=== PATIENT | female | born 1985 | race Caucasian/White ===

== ENCOUNTER → 2018-07-13 | Emergency (ER) | payer MEDICAID ==
[~2018-07-13] VITALS: Ht 165.1 cm; Wt 119.5 kg
[~2018-07-13] MED LIST: ACET-812 PO; GUAI1TBM19 PO; HCTZ; IBUP-1984 PO; ONDA4TAB6 PO; [UNRECOGNIZED DRUG - REMARK]
[2018-07-13 18:26] VITALS: BP 174/117
[2018-07-13 19:08] LABS: BASOPHILS % (AUTO) 0.3 % (0-1); EOSINOPHILS # (AUTO) 0.2 X10'3 (0-0.9); EOSINOPHILS % (AUTO) 1.5 % (0-6); HEMATOCRIT 42.3 % (35.0-45.0); HEMOGLOBIN 13.9 g/dl (12.0-16.0); LYMPHOCYTES # (AUTO) 3.4 X10'3 (1.1-4.8); LYMPHOCYTES % (AUTO) 26.9 % (21-51); MEAN CORPUSCULAR HEMOGLOBIN 28.8 PG (27.0-31.0); MEAN CORPUSCULAR HGB CONC 32.9 % (33.0-36.5); MEAN CORPUSCULAR VOLUME 87.7 FL (78-98); MEAN PLATELET VOLUME 8.6 FL (7.4-10.4); MONOCYTES % (AUTO) 7.5 % (2-12); NEUTROPHILS # (AUTO) 8.1 X10'3 (1.8-7.7); NEUTROPHILS % (AUTO) 63.8 % (42-75); PLATELET COUNT 359 X10'3 (140-440); RED BLOOD COUNT 4.82 X10'6 (4.20-5.60); RED CELL DISTRIBUTION WIDTH 13.4 % (11.5-14.5); WHITE BLOOD COUNT 12.7 X10'3 (4.5-11.0)
[2018-07-13 19:28] LABS: ALANINE AMINOTRANSFERASE 34 U/L (12-78); ALBUMIN 3.9 G/DL (3.4-5.0); ALKALINE PHOSPHATASE 92 IU/L (46-116); ANION GAP 10 (8-16); ASPARTATE AMINO TRANSFERASE 16 U/L (10-37); BILIRUBIN,TOTAL 0.4 MG/DL (0.1-1.0); BLOOD UREA NITROGEN 8 MG/DL (7-18); BUN/CREATININE RATIO 11.3 (6.6-38.0); CALCIUM 9.1 MG/DL (8.5-10.1); CHLORIDE 102 MMOL/L (99-107); CREATININE 0.71 MG/DL (0.40-0.90); GLUCOSE 78 MG/DL (70-104); POTASSIUM 3.7 MMOL/L (3.5-5.1); PROTHROMBIN TIME 9.8 SECONDS (9.0-12.0); SODIUM 138 MMOL/L (135-145); TOTAL CARBON DIOXIDE 26.4 MMOL/L (24-32); eGFR > 90 ML/MIN
[2018-07-13 19:38] LABS: UA COLLECTION TYPE CLN CATCH MIDSTREAM; URINE HCG NEGATIVE (NEG)
[2018-07-13 19:39] LABS: CLARITY,URINE CLOUDY (Clear); COLOR,URINE Red (Yellow)
[2018-07-13 20:08] LABS: RBC,URINE TNTC /HPF (0-2); SQUAMOUS EPITHELIAL CELL,UR MODERATE /LPF (FEW)
[2018-07-13 20:09] LABS: BACTERIA,URINE FEW /HPF (Neg); WBC,URINE 0-4 /HPF (0-4)
== END | disposition home or self-care (01) ==
LOC: ER 18:04
DX: N93.9 Abnormal uterine and vaginal bleeding, unspecified (principal); I10 Essential (primary) hypertension; Z87.440 Personal history of urinary (tract) infections; Z91.040 Latex allergy status
CPT/HCPCS: 36415; 80053; 81001; 81025; 85025; 85610; 99283

== ENCOUNTER 2018-08-25 18:23 | Emergency (ER) | payer MEDICAID ==
[~2018-08-25] VITALS: Ht 165.1 cm; Wt 126.0 kg
[2018-08-25 18:33] VITALS: BP 157/94
[2018-08-25] MEDS ORDERED: HYDROcodone/acetaminophen 10/325mg tab PO STA (18:36)
[2018-08-25] MEDS ORDERED: IBUP-1985 PO (20:37)
== END 2018-08-25 20:55 | disposition home or self-care (01) ==
LOC: ER 18:24
DX: M25.561 Pain in right knee (principal); I10 Essential (primary) hypertension; Z88.8 Allergy status to other drugs, medicaments and biological substances; Z91.040 Latex allergy status; W01.0XXA Fall on same level from slipping, tripping and stumbling without subsequent striking against object, initial encounter; Y93.89 Activity, other specified; Y92.89 Other specified places as the place of occurrence of the external cause; Y99.8 Other external cause status
CPT/HCPCS: 29505; 73564; 99283

== ENCOUNTER 2019-07-30 18:34 | Emergency (ER) | payer MEDICAID ==
[~2019-07-30] VITALS: Ht 165.1 cm; Wt 122.7 kg
[~2019-07-30 18:34] MED LIST changes: +IBUP-1985 PO
[2019-07-30 18:40] VITALS: BP 163/97
[2019-07-30] MEDS ORDERED: HYDROcodone/acetaminophen 10/325mg tab PO ONE (19:10)
--- NOTE | 2019-07-30 19:49 | NUR ---
ULTRASOUND AT BEDSIDE
[2019-07-30 20:11] LABS: BASOPHILS # (AUTO) 0.1 X10'3 (0-0.2); BASOPHILS % (AUTO) 0.8 % (0-1); EOSINOPHILS # (AUTO) 0.4 X10'3 (0-0.9); EOSINOPHILS % (AUTO) 4.1 % (0-6); HEMATOCRIT 38.8 % (35.0-45.0); HEMOGLOBIN 13.3 g/dl (12.0-16.0); LYMPHOCYTES # (AUTO) 2.9 X10'3 (1.1-4.8); LYMPHOCYTES % (AUTO) 29.1 % (21-51); MEAN CORPUSCULAR HEMOGLOBIN 29.2 PG (27.0-31.0); MEAN CORPUSCULAR HGB CONC 34.2 g/dL (33.0-36.5); MEAN CORPUSCULAR VOLUME 85.5 FL (78-98); MONOCYTES # (AUTO) 0.7 X10'3 (0-0.9); MONOCYTES % (AUTO) 7.3 % (2-12); NEUTROPHILS # (AUTO) 5.7 X10'3 (1.8-7.7); NEUTROPHILS % (AUTO) 58.7 % (42-75); PLATELET COUNT 300 X10'3 (140-440); RED BLOOD COUNT 4.54 X10'6 (4.20-5.60); RED CELL DISTRIBUTION WIDTH 13.8 % (11.5-14.5); WHITE BLOOD COUNT 9.8 X10'3 (4.5-11.0)
[2019-07-30 20:29] LABS: ALANINE AMINOTRANSFERASE 38 U/L (12-78); ALBUMIN 3.3 G/DL (3.4-5.0); ALBUMIN/GLOBULIN RATIO 0.8 (1.1-1.5); ALKALINE PHOSPHATASE 67 IU/L (46-116); ANION GAP 7 (8-16); ASPARTATE AMINO TRANSFERASE 13 U/L (10-37); BILIRUBIN,TOTAL 0.3 MG/DL (0.1-1.0); BLOOD UREA NITROGEN 15 MG/DL (7-18); BUN/CREATININE RATIO 17.6 (6.6-38.0); CALCIUM 8.4 MG/DL (8.5-10.1); CHLORIDE 106 MMOL/L (99-107); CREATININE 0.85 MG/DL (0.40-0.90); GLUCOSE 99 MG/DL (70-104); POTASSIUM 3.8 MMOL/L (3.5-5.1); SODIUM 140 MMOL/L (135-145); TOTAL PROTEIN 7.3 G/DL (6.4-8.2); eGFR 77 ML/MIN
[2019-07-30 20:54] LABS: CLARITY,URINE CLOUDY (Clear); UA COLLECTION TYPE CLN CATCH MIDSTREAM
[2019-07-30 20:55] LABS: COLOR,URINE RED (Yellow)
[2019-07-30 20:56] LABS: URINE HCG NEGATIVE (NEG)
[2019-07-30 21:08] LABS: AMORPHOUS URATES 1+; BACTERIA,URINE NONE SEEN /HPF (Neg); RBC,URINE TNTC /HPF (0-2); SQUAMOUS EPITHELIAL CELL,UR FEW /LPF (FEW)
[2019-07-30] MEDS ORDERED: ketorolac tromethamine 15mg/ml inj. IM ONE (21:25)
== END 2019-07-30 21:40 | disposition home or self-care (01) ==
LOC: ER 18:35
DX: R10.13 Epigastric pain (principal); R10.11 Right upper quadrant pain; M54.6 Pain in thoracic spine; G89.29 Other chronic pain; F32.9 Major depressive disorder, single episode, unspecified; Z88.8 Allergy status to other drugs, medicaments and biological substances; Z91.040 Latex allergy status; Z79.899 Other long term (current) drug therapy
CPT/HCPCS: 36415; 76700; 80053; 81001; 81025; 85025; 87088; 96372; 99284; J1885

== ENCOUNTER 2020-06-22 20:28 | Emergency (ER) | payer MEDICAID ==
[~2020-06-22] VITALS: Ht 165.1 cm; Wt 124.2 kg
[~2020-06-22 20:28] MED LIST changes: -GUAI1TBM19 PO; -HCTZ; -IBUP-1985 PO; +LIDOcaine 1% 30ml preserv. free vial ONE; -ONDA4TAB6 PO; -[UNRECOGNIZED DRUG - REMARK]
[2020-06-22 20:31] VITALS: BP 150/98
== END 2020-06-22 22:35 | disposition home or self-care (01) ==
LOC: ER 20:29
DX: L02.412 Cutaneous abscess of left axilla (principal); R50.9 Fever, unspecified; F32.9 Major depressive disorder, single episode, unspecified; Z87.440 Personal history of urinary (tract) infections; Z91.040 Latex allergy status; Z88.8 Allergy status to other drugs, medicaments and biological substances; Z79.899 Other long term (current) drug therapy
CPT/HCPCS: 10060; 99282; J2001

== ENCOUNTER 2021-03-26 12:07 | Day surgery (SDC) | payer MEDICAID ==
[2021-03-19 15:32] LABS: BASOPHILS # (AUTO) 0.1 X10'3 (0-0.2); BASOPHILS % (AUTO) 0.6 % (0-1); EOSINOPHILS # (AUTO) 0.1 X10'3 (0-0.9); EOSINOPHILS % (AUTO) 1.1 % (0-6); LYMPHOCYTES # (AUTO) 2.6 X10'3 (1.1-4.8); LYMPHOCYTES % (AUTO) 25.4 % (21-51); MEAN CORPUSCULAR HEMOGLOBIN 28.2 PG (27.0-31.0); MEAN CORPUSCULAR HGB CONC 33.3 g/dL (33.0-36.5); MEAN CORPUSCULAR VOLUME 84.7 FL (78-98); MONOCYTES # (AUTO) 0.7 X10'3 (0-0.9); MONOCYTES % (AUTO) 7.4 % (2-12); NEUTROPHILS # (AUTO) 6.6 X10'3 (1.8-7.7); NEUTROPHILS % (AUTO) 65.5 % (42-75); PRE OP HEMATOCRIT 38.3 % (35.0-45.0); PRE OP HEMOGLOBIN 12.7 g/dL (12.0-16.0); PRE OP PLATELET COUNT 310 X10'3 (140-440); RED BLOOD COUNT 4.52 X10'6 (4.20-5.60); RED CELL DISTRIBUTION WIDTH 14.7 % (11.5-14.5)
[2021-03-19 15:37] LABS: CLARITY,URINE CLOUDY (Clear); COLOR,URINE YELLOW (Yellow); GLUCOSE, URINE NEGATIVE (Neg); KETONES,URINE NEGATIVE (Neg); LEUKOCYTE ESTERASE ,URINE NEGATIVE (Neg); NITRITES, URINE NEGATIVE (Neg); OCCULT BLOOD,URINE NEGATIVE (Neg); PROTEIN,URINE NEGATIVE (Neg)
[2021-03-19 15:40] LABS: UA COLLECTION TYPE CLN CATCH MIDSTREAM
[2021-03-19 15:42] LABS: HCG SERUM QL NEGATIVE
[2021-03-19 15:52] LABS: MUCUS STRANDS MANY /LPF (Neg); SQUAMOUS EPITHELIAL CELL,UR MANY /LPF (FEW)
[2021-03-19 15:52] LABS: ALBUMIN 3.7 G/DL (3.4-5.0); ALBUMIN/GLOBULIN RATIO 0.9 (1.1-1.5); ALKALINE PHOSPHATASE 82 IU/L (46-116); BLOOD UREA NITROGEN 12 MG/DL (7-18); BUN/CREATININE RATIO 16.9 (6.6-38.0); CALCIUM 8.1 MG/DL (8.5-10.1); CHLORIDE 104 MMOL/L (99-107); CREATININE 0.71 MG/DL (0.40-0.90); PRE OP ALT 45 U/L (30-65); PRE OP ANION GAP 10 (8-16); PRE OP AST 15 U/L (10-37); PRE OP BILIRUB, TOTAL 0.6 MG/DL (0.0-1.0); PRE OP GLUCOSE 98 MG/DL (70-104); PRE OP POTASSIUM 3.7 MMOL/L (3.4-5.1); PRE OP SODIUM 141 MMOL/L (135-145); eGFR > 90 ML/MIN
[2021-03-19 15:54] LABS: BACTERIA,URINE 4+ /HPF (Neg); RBC,URINE 0-2 /HPF (0-2); WBC,URINE 0-4 /HPF (0-4)
[~2021-03-26] VITALS: Ht 165.1 cm; Wt 124.1 kg
[2021-03-26] VITALS (18 sets, daily range): BP systolic 124–181; BP diastolic 76–100
[~2021-03-26 12:07] MED LIST changes: -ACET-812 PO; +ACYC-1 PO; +DOCUMENT DATE & TIME OF BETA-BLOCKER PO ONE; -IBUP-1984 PO; +LABE100T5 PO; -LIDOcaine 1% 30ml preserv. free vial ONE; +LORA-512 PO; +NIFE30TA95 PO; +NORE0.3560 PO; +SOLI5TAB2 PO; +TRIA15CR62 TOP; +ceFOXitin 2GM-NS 100mL ADDvant 100 ML IV ONE; +famotidine 20mg tablet PO ONE; +ringers solution, lacted 1,000 ML IV SCH
[2021-03-26] MEDS ORDERED: BUPIVAcaine 0.5% inj/PF 30 ML ONE (13:36)
[2021-03-26] MEDS ORDERED: fentaNYL/PF 50MCG/1 ML 2ML syringe ONE (14:11)
[2021-03-26] MEDS ORDERED: midazolam 1 mg/ML 2ml injection ONE (14:11)
[2021-03-26] MEDS ORDERED: hydrALAZINE 20mg/ml inj. IV ONE (14:30)
[2021-03-26] MEDS ORDERED: glycopyrrolate 0.2mg/ml inj ONE (14:30)
[2021-03-26] MEDS ORDERED: sevoflurane 250ml liquid IH ONE (14:30)
[2021-03-26] MEDS ORDERED: neostigmine methylsulfate 1 MG/ML 10ml vial ONE (14:30)
[2021-03-26] MEDS ORDERED: dexamethasone sod phosphate 4mg/ml inj. ONE (15:21)
[2021-03-26] MEDS ORDERED: LIDOcaine 2% (20mg/ml) 5ml vial ONE (15:21)
[2021-03-26] MEDS ORDERED: rocuronium 10mg/ml inj IV ONE (15:21)
[2021-03-26] MEDS ORDERED: acetaminophen 1,000mg/100ml IV 100 ML IV ONE (15:21)
[2021-03-26] MEDS ORDERED: propofol inj 20 ML IV ONE (15:21)
[2021-03-26] MEDS ORDERED: ondansetron/PF 4mg/2ml inj ONE (15:21)
[2021-03-26] MEDS ORDERED: sugammadex 200mg/2ml injection IV ONE ×2 (15:22)
[2021-03-26] MEDS ORDERED: meperidine/PF 25mg/ml syringe ONE (15:28)
--- NOTE | 2021-03-26 15:32 | NUR ---
Received from OR via [facility] IN STABLE CONDITION , accompanied by Anesthesiologist and HAND TENNIS BALL COVERER report given by HAND TENNIS BALL COVERER AND Anesthesiolgist. Addendum: 03/26/21 at 1755 by Sangeeta Gusman RN Amended: Links added.
[2021-03-26] MEDS ORDERED: ringers solution, lacted 1,000 ML IV SCH (15:45)
[2021-03-26] MEDS ORDERED: morphine 2 MG/ML inj. syringe IV PRN (15:45)
[2021-03-26] MEDS ORDERED: morphine 4 MG/ML inj SYRINge IV PRN (15:45)
[2021-03-26] MEDS ORDERED: meperidine/PF 25mg/ml syringe IV PRN ×2 (15:45)
[2021-03-26] MEDS ORDERED: proCHLORperazine 10 MG/2 ml inj IV PRN (15:45)
[2021-03-26] MEDS ORDERED: ondansetron/PF 4mg/2ml inj IV PRN (15:45)
[2021-03-26] MEDS: meperidine/PF 25mg/ml syringe IV PRN ×2 (16:08→17:26)
--- NOTE | 2021-03-26 18:32 | NUR ---
PATIENT DISCHARGED FROM PACU IN STABLE CONDITION AFTER WRITTEN AND VERBAL DISCHARGE INSTRUCTIONS GIVEN. PATIENT GAVE VERBAL UNDERSTANDING OF INSTRUCTIONS GIVEN. PATIENT LEFT FACILITY VIA WHEELCHAIR WITH RN. Addendum: 03/26/21 at 1839 by Sangeeta Gusman RN Amended: Links added.
== END 2021-03-26 18:32 | disposition home or self-care (01) ==
LOC: PAS 12:07
PROVIDERS: ATTEND Obstetrics & Gynecology Obstetrics
DX: Z30.2 Encounter for sterilization (principal); N93.9 Abnormal uterine and vaginal bleeding, unspecified; F32.9 Major depressive disorder, single episode, unspecified; I10 Essential (primary) hypertension; E28.2 Polycystic ovarian syndrome; E66.9 Obesity, unspecified; Z68.42 Body mass index [BMI] 45.0-49.9, adult; Z79.899 Other long term (current) drug therapy; Z20.822 Contact with and (suspected) exposure to COVID-19; Z79.82 Long term (current) use of aspirin; Z91.040 Latex allergy status; Z88.8 Allergy status to other drugs, medicaments and biological substances; Z98.890 Other specified postprocedural states; Z83.3 Family history of diabetes mellitus; Z82.49 Family history of ischemic heart disease and other diseases of the circulatory system
CPT/HCPCS: 36415; 58563; 58671; 71046; 80053; 81001; 82948; 84703; 85025; 86885; 86900; 86901; 93005; A4264; C9399; J0131; J0360; J0694; J1100; J2001; J2175; J2250; J2405; J2704; J2710; J3010; J7120; U0003; U0005; Z7506; Z7508; Z7512; A4355; A4618; A4649; A6258; A7000; J3490

== ENCOUNTER 2021-06-12 19:12 | Emergency (ER) | payer MEDICAID ==
[~2021-06-12] VITALS: Ht 165.1 cm; Wt 122.7 kg
[~2021-06-12 19:12] MED LIST changes: -DOCUMENT DATE & TIME OF BETA-BLOCKER PO ONE; -ceFOXitin 2GM-NS 100mL ADDvant 100 ML IV ONE; -famotidine 20mg tablet PO ONE; -ringers solution, lacted 1,000 ML IV SCH
[2021-06-12] MEDS ORDERED: cloNIDine 0.1 mg tablet PO ONE (19:35)
[2021-06-12] MEDS ORDERED: LORazepam 1 MG tablet PO ONE (19:55)
[2021-06-12 20:40] VITALS: BP 149/107
== END 2021-06-12 21:09 | disposition home or self-care (01) ==
LOC: ER 19:12
DX: U07.1 COVID-19 (principal); I10 Essential (primary) hypertension; R50.9 Fever, unspecified; R05.9 Cough, unspecified; R19.7 Diarrhea, unspecified; R51.9 Headache, unspecified; M54.2 Cervicalgia; F32.9 Major depressive disorder, single episode, unspecified; Z87.440 Personal history of urinary (tract) infections; Z91.040 Latex allergy status; Z88.8 Allergy status to other drugs, medicaments and biological substances; Z79.2 Long term (current) use of antibiotics; Z79.899 Other long term (current) drug therapy
CPT/HCPCS: 87635; 99283; C9803